=== PATIENT | female | born 2000 | race Two or more races ===

== ENCOUNTER 2021-07-29 19:11 | Emergency (ER) | payer OTHER ==
[~2021-07-29] VITALS: Ht 160 cm; Wt 65.3 kg
== END 2021-07-29 20:42 | disposition home or self-care (01) ==
LOC: ER 19:11
DX: R51.9 Headache, unspecified (principal); J32.8 Other chronic sinusitis

== ENCOUNTER → 2024-03-09 13:26 | Outpatient (CLI) | payer OTHER | END | disposition home or self-care (01) | LOC: PRENATAL 13:26 | PROVIDERS: ATTEND Obstetrics & Gynecology Maternal & Fetal Medicine | DX: O35.3XX0 Maternal care for (suspected) damage to fetus from viral disease in mother, not applicable or unspecified (principal); O44.00 Complete placenta previa NOS or without hemorrhage, unspecified trimester; Z3A.21 21 weeks gestation of pregnancy ==

== ENCOUNTER 2024-04-25 08:36 | Outpatient (CLI) | payer OTHER | END 2024-04-25 08:37 | disposition home or self-care (01) | LOC: PRENATAL 08:36 | PROVIDERS: ATTEND Obstetrics & Gynecology Maternal & Fetal Medicine | DX: O26.849 Uterine size-date discrepancy, unspecified trimester (principal); O36.8199 Decreased fetal movements, unspecified trimester, other fetus; O41.00X0 Oligohydramnios, unspecified trimester, not applicable or unspecified; Z3A.27 27 weeks gestation of pregnancy ==

== ENCOUNTER 2024-06-28 16:45 | Inpatient (IN) | payer OTHER ==
[~2024-06-28] VITALS: Ht 160 cm; Wt 83.5 kg
[2024-06-28 17:10] VITALS: BP 104/72
[2024-06-28 17:45] VITALS: BP 104/72
[2024-06-28 17:45] LABS: URINE APPEARANCE Clear; URINE BILIRRUBIN Negative (NEGATIVE); URINE BLOOD Negative; URINE COLOR Yellow; URINE GLUCOSE Negative (NEGATIVE); URINE KETONE Negative (NEGATIVE); URINE LEUKOCYTE Negative; URINE NITRATE Negative; URINE PROTEIN Negative (NEGATIVE); URINE UROBILINOGEN 0.2 E.U./dl
[2024-06-28 17:47] LABS: HEMATOCRIT 37.3 % (36.0-45.00); HEMOGLOBIN 12.5 g/dL (12.0-15.00); MEAN CELL VOLUME 90.3 fL (80.00-100.00); MEAN CORPUSCULAR HEMOGLOBIN 30.3 pg (27.00-32.0); MEAN CORPUSCULAR HGB CONC 33.6 g/dl (32.0-36.0); PLATELET COUNT 222 K/uL (150-450); RED BLOOD COUNT 4.13 M/uL (4.00-6.00); RED CELL DISTRIBUTION WIDTH 13.6 % (11.5-14.5)
[2024-06-28 17:50] LABS: URINE BACTERIA 31.8 uL (0.0-1933); URINE EPITHELIAL CELLS 11.5 uL (0.0-38.8); URINE WBC 4.4 uL (0.0-23.2)
[2024-06-28 17:58] LABS: URINE RBC 1.4 uL (0.0-20.8)
[2024-06-28 17:59] LABS: INR < 0.93; PARTIAL THROMBOPLASTIN TIME 24.1 SECONDS (22.0-34.0); PROTHROMBIN TIME 10.2 SECONDS (9.0-11.5)
[2024-06-28 18:04] LABS: ALBUMIN 2.8 gm/dL (3.4-5.0); BILIRUBIN TOTAL 0.25 mg/dL (0.3-1.2); CALCIUM 9.1 mg/dL (8.5-10.1); CREATININE SERUM 0.75 mg/dL (0.55-1.02); GFR 94.15; GLOBULINA 3.6 G/DL (2.4-3.5); POTASSIUM 4.62 mEq/L (3.5-5.1); TOTAL PROTEIN 6.4 gm/dL (6.4-8.2)
[2024-06-28] MEDS ORDERED: PRENATAL 19 CH1 EACH PO (18:21)
[2024-06-28 20:21] VITALS: BP 115/73
[2024-06-28] MEDS ORDERED: MISOPROSTOL 25 MCG TABLET VAG ONE (20:45)
[2024-06-28 23:18] VITALS: BP 113/69; O2SAT 98
[2024-06-29] VITALS (10 sets, daily range): BP systolic 107–133; BP diastolic 50–72
[2024-06-29] MEDS ORDERED: OXYTOCIN 500 ML IV SCH (07:30)
[2024-06-29] MEDS ORDERED: PROMETHAZINE HCL 25 MG/ML AMPUL ONE (13:29)
[2024-06-29] MEDS ORDERED: MEPERIDINE HCL 25 MG/ML AMPUL IV ONE (13:30)
[2024-06-29] MEDS ORDERED: PROMETHAZINE HCL 25 MG/ML AMPUL IV ONE (13:30)
[2024-06-29] MEDS ORDERED: CHLORHEXIDINE GLUCONATE 120 ML BOTTLE TOP ONE (16:00)
[2024-06-29] MEDS ORDERED: OXYTOCIN 20 UNITS/1000ML RL PIGGYBAG IV ONE (16:00)
[2024-06-29] MEDS ORDERED: ERYTHROMYCIN BASE OPHT 1GM EACH TUBE OP ONE ×2 (16:00→19:00)
[2024-06-29] MEDS ORDERED: LIDOCAINE HCL 1% 10ML VIAL ONE (16:00)
[2024-06-29] MEDS ORDERED: OXYTOCIN 1,000 ML IV SCH (18:00)
[2024-06-29] MEDS ORDERED: CHLORHEXIDINE GLUCONATE 120 ML BOTTLE TOP SCH (18:00)
[2024-06-29] MEDS ORDERED: ACETAMINOPHEN 500 MG GEL..CAP PO PRN (18:00)
[2024-06-30 00:30] VITALS: BP 105/61
[2024-06-30 08:00] VITALS: BP 127/76
[2024-06-30 15:00] VITALS: BP 125/74
[2024-07-01 00:21] VITALS: BP 104/66
[2024-07-01 08:28] VITALS: BP 117/78
== END 2024-07-01 17:05 | disposition home or self-care (01) | DRG 807 ==
LOC: OB/GYN 16:45 → LDR 16:45 → OB/GYN 06-29 18:59
PROVIDERS: ADMIT Obstetrics & Gynecology; ATTEND Obstetrics & Gynecology
PROC: 3E0P7VZ Introduction of Hormone into Female Reproductive, Via Natural or Artificial Opening (ICD-10-PCS; 2024-06-28)
PROC: 4A1HXCZ Monitoring of Products of Conception, Cardiac Rate, External Approach (ICD-10-PCS; 2024-06-28)
PROC: 10E0XZZ Delivery of Products of Conception, External Approach (ICD-10-PCS; principal; 2024-06-29)
PROC: 3E033VJ Introduction of Other Hormone into Peripheral Vein, Percutaneous Approach (ICD-10-PCS; 2024-06-29)
DX: O69.81X0 Labor and delivery complicated by cord around neck, without compression, not applicable or unspecified (principal); Z37.0 Single live birth; Z3A.37 37 weeks gestation of pregnancy